=== PATIENT | male | born 1995 | race Caucasian/White ===

== ENCOUNTER 2017-10-28 16:13 | Emergency (ER) | payer BC, SELFPAY ==
[2017-10-28 16:14] VITALS: BP 138/82; PULSE 75; RESP 14; TEMP 36.4; O2SAT 98; BMI 22.8
--- NOTE | 2017-10-28 17:12 | ED.DCSUM_ITS ---
- ER Visit Summary Date of Service: 10/28/17 Chief Complaint: Cerner for gastric ulcer History of Present Illness: The patient is a 22 M is a college [employer] student. He states that a couple years ago he had a perforated stomach ulcer and underwent surgery. He states that he has not required PPIs or antacid medication for little bit more than a year. States about a week ago he started noticing that his stool was darker than normal. He does not describe it as black and tarry. He states that 2 days ago he is working out and had a near syncopal episode and felt really lightheaded. He notes that not had any pain with eating. He denies any heartburn. He states his stools have been looser than normal but believes that is due to his anxiety which results in irritable bowel-like picture. Physical Examination: Afebrile vital signs are stable Gen: Well-nourished well-developed Head: Normocephalic atraumatic Eyes: Perrl EOMI ENT: TMs clear no rhinorrhea moist mucous membranes Neck: Supple no lymphadenopathy no JVD nontender CVS: Regular rate rhythm no murmurs normal S1-S2 Respiratory: No distress clear to auscultation bilaterally chest nontender Abdomen: Soft nontender nondistended normal bowel sounds no masses Rectal: Formed stool. Stool is brown. Back: Nontender Extremity: Nontender no edema Skin: Normal color no rash Neuro: alert orientated ?3 CN II-XII intact normal strength sensation reflexes gait cerebellar Psych: Normal affect normal mood Test Results: Stool is heme positive per the lab. Hemoglobin is 12. Emergency Department Course and Treatment: Patient clinically is stable. I am going to place him on twice daily Pepcid. I am going to refer him to gastroenterology. He is to return if stools are black and tarry he is having abdominal pain or is worsening. Impression: 1. Stable upper GI bleed This note was generated with [employer] dictation software. It may contain incorrect words, spelling, and punctuation that were not noted in review of the chart prior to signing ED Disposition - Plan for ED Patient: Disposition: Home or Assisted Living Chief Complaint: Abd Pain Instructions: ED Bleed UGI Stable Prescriptions: Famotidine [Pepcid] 20 mg PO BID #28 tab Referrals: [facility] Doctor,Out of [Primary Care Provider] - Jay Reese MD [STAFF PHYSICIAN] - As soon as possible
[2017-10-28 17:33] LABS: Absolute Lymphocyte Count 2.36 X10^3/ul (0.83-4.51); Absolute Neutrophil Count 3.4 X10^3/uL (2.0-7.7); Basophil# 0.04 X10^3/uL; Basophil% 0.6 % (0-1); Eosinophil# 0.13 X10^3/uL; Eosinophils% 2.1 % (0-5); Hematocrit 35.5 % (40-54); Lymphocyte # 2.36 X10^3/ul (4.0); Lymphocyte % 37.7 % (19-41); Mean Corp Hgb Conc 33.8 g/gl (32-36); Mean Corpuscular Hgb 31.7 pg (27.0-32.0); Mean Corpuscular Volume 93.7 fL (80-94); Mean Platelet Vol. 10.5 fl (6.2-12.0); Monocyte# 0.36 X10^3/uL; Monocyte% 5.8 % (0-10); Neutrophil # 3.36 X10^3/uL (2.7-7.7); Neutrophil % 53.6 % (47-70); Platelet Count 225 K/mm3 (150-450); RBC Distribution Width CV 11.8 % (11.6-14.6); RBC Distribution Width SD 39.6 fl (35.1-43.9); Red Blood Count 3.79 M/mm3 (4.6-6.2); White Blood Count 6.3 K/mm3 (4.4-11.0)
[2017-10-28 17:34] LABS: POSITIVE COUNT NO; POSITIVE DIFFERENTIAL NO; POSITIVE MORPHOLOGY NO
[2017-10-28 17:46] LABS: ALB/GLOB Ratio 1.3 RATIO (0.9-2.4); AST(SGOT) 14 U/L (15-37); Alanine Aminotransfer ALT/SGPT 20 U/L (16-61); Albumin, Serum 4.3 g/dL (3.2-5.0); Alkaline Phosphatase 96 U/L (45-117); Anion Gap 8 (5-15); BUN 14 mg/dL (7-18); Calcium,Total 9.9 mg/dL (8.5-10.1); Chloride 105 mmol/L (98-107); EST Glomerular Filtration Rate 152 mL/min (>60); Est Glom Filt Rate - Afr Amer 183 mL/min (>60); Estimated Creatinine Clearance 173.81 ml/min; Globulin 3.2 g/dL (2.2-4.2); Glucose 72 mg/dL (74-106); Lipase 38 U/L (73-393); Potassium 3.8 mmol/L (3.5-5.1); Protein, Total 7.5 g/dL (6.4-8.2); Sodium Level 140 mmol/L (136-145)
[2017-10-28 18:31] VITALS: BP 122/66; PULSE 67; PULSE 97; RESP 14; O2SAT 97
== END 2017-10-28 18:34 | disposition home or self-care (01) ==
PROVIDERS: Emergency Provider Emergency Medicine
DX: K92.2 Gastrointestinal hemorrhage, unspecified (principal); F41.9 Anxiety disorder, unspecified
CPT/HCPCS: 80053; 82274; 83690; 85025; 99283; A4216